=== PATIENT | female | born 1995 | race Caucasian/White ===

== ENCOUNTER 2022-05-06 09:08 | Inpatient (IN) | payer OTHER ==
[~2022-05-06] VITALS: Ht 165.1 cm; Wt 65.3 kg
[2022-05-06 09:15] VITALS: BP 140/111
--- NOTE | 2022-05-06 09:18 | NUR ---
AMBULATED TO BED 11
[2022-05-06] MEDS ORDERED: KETOROLAC 30 MG/ML VIAL IVP ONE (09:30)
[2022-05-06] MEDS ORDERED: NACL 0.9% 1,000 ML IV ONE ×2 (09:30→10:35)
[2022-05-06] MEDS ORDERED: LABETALOL 100 MG/20 ML VIAL IVP ONE (09:30)
[2022-05-06] MEDS ORDERED: LABETALOL 20 MG/4 ML VIAL IVP ONE (09:33)
--- NOTE | 2022-05-06 09:40 | NUR ---
PT C/O LEFT EAR PAIN WITH PURULENT DRAINAGE X1 MONTH. STACH ON MONITOR AND HYPERTENSIVE, IV INSERTED TO LEFT AC #20GUAGE . MEDICATED PER ORDER.
[2022-05-06 10:10] LABS: BASOPHILS # (AUTO) 0.1 K/uL (0.00-0.22); BASOPHILS % (AUTO) 1.1 % (0.0-2.0); EOSINOPHILS # (AUTO) 0.1 K/uL (0-0.4); EOSINOPHILS % (AUTO) 2.5 % (0.0-4.0); HEMATOCRIT 47.8 % (36-48); HEMOGLOBIN 16.6 g/dL (12.0-16.0); LYMPHOCYTES # (AUTO) 1.2 K/uL (2.5-16.5); LYMPHOCYTES % (AUTO) 21.6 % (20.5-51.1); MEAN CORPUSCULAR HEMOGLOBIN 35 pg (27-31); MEAN CORPUSCULAR HGB CONC 35 g/dL (33-37); MEAN CORPUSCULAR VOLUME 101.5 fL (80-94); MONOCYTES # (AUTO) 0.6 K/uL (0.8-1.0); MONOCYTES % (AUTO) 10.3 % (1.7-9.3); NEUTROPHILS # (AUTO) 3.7 K/uL (1.8-7.7); NEUTROPHILS % (AUTO) 64.5 % (42.2-75.2); PLATELET COUNT (AUTO) 153 K/uL (140-450); RED BLOOD CELL COUNT(AUTO) 4.71 MIL/uL (4.20-5.40); RED CELL DISTRIBUTION WIDTH 13.5 % (11.6-13.7); WHITE BLOOD COUNT (AUTO) 5.8 K/uL (4.8-10.8)
[2022-05-06 10:18] LABS: PROTHROMBIN TIME 10.7 secs (10.8-13.4)
[2022-05-06] MEDS ORDERED: AMPICILLIN/SULBACTAM 3 GM VIAL IM ONE (10:40)
[2022-05-06] MEDS ORDERED: VANCOMYCIN 1,000 MG in DEXTROSE 5% 250 ML IV ONE (10:40)
[2022-05-06 10:46] LABS: ALBUMIN 3.2 g/dL (3.4-5.0); CARBON DIOXIDE 26.2 mmol/L (21-32); CREATININE 0.6 mg/dL (0.6-1.3); POTASSIUM 3.2 mmol/L (3.5-5.1); TOTAL BILIRUBIN 1.3 mg/dL (0.0-1.0)
[2022-05-06] MEDS ORDERED: VANCOMYCIN 1,000 MG VIAL ONE (11:02)
[2022-05-06] MEDS ORDERED: POTASSIUM CHLORIDE 10 MEQ TABER PO ONE (11:30)
--- NOTE | 2022-05-06 12:00 | NUR ---
PT RESTING IN [facility] NO CHANGES NOTED SAFETY MAINTAINED
[2022-05-06] MEDS ORDERED: ACETAMINOPHEN 325 MG TAB PO PRN (13:15)
[2022-05-06] MEDS ORDERED: ONDANSETRON 4 MG/2 ML VIAL IVP PRN (13:15)
--- NOTE | 2022-05-06 15:00 | NUR ---
PT AMBULATES TO BATHROOM AND BACK TO [place], DENIES PAIN OR DISCOMFORT. PENDING ADMISSION ROOM. NAD. SAFETY MAINTAINED.
--- NOTE | 2022-05-06 17:57 | NUR ---
PT TX TO MED SURG IN STABLE CONDITION
--- NOTE | 2022-05-06 18:30 | NUR ---
admitted pt. from ED transported via gurney. A/O x4. not in any form of distress. assessment done and documented. plan of care discussed with the patient.
[2022-05-06] MEDS: OFLOXACIN 0.3% OT 5 ML SOL LEFT EAR SCH (18:51)
[2022-05-06] MEDS: AMPICILLIN/SULBACTAM 1.5 GM in NACL 0.9% 50 ML IV SCH ×2 (18:51→23:31)
--- NOTE | 2022-05-06 19:20 | NUR ---
RECEIVED REPORT FROM MORNING SHIFT NURSE. PATIENT IS AWAKE ALERT RESTING COMFORTABLY IN BED. NO DISTRESS ON ROOM AIR. IV ACCESS ON THE LAC 22 GAUGE INTACT AND PATENT. CALL LIGHT WITHIN REACH. NO COMPLAINTS OF PAIN AT THIS TIME. ALL SAFETY PRECAUTIONS ARE IN PLACE.
[2022-05-06] MEDS: HYDROcodone/APAP 5/325 MG 1 TAB TAB PO PRN (20:50)
--- NOTE | 2022-05-06 20:50 | NUR ---
PATIENT COMPLAINED OF MODERATE LEFT EAR PAIN , MEDICATED.
[2022-05-06] MEDS ORDERED: CLONIDINE HYDROCHLORIDE 0.1 MG TAB PO PRN (21:35)
[2022-05-06] MEDS ORDERED: VANCOMYCIN PER PHARMACY MC PRN (21:35)
--- NOTE | 2022-05-06 23:31 | NUR ---
UNASYN IVPB ADMINISTERED ORDERED.
[2022-05-07] VITALS: BP 123/85
[2022-05-07] MEDS ORDERED: VANCOMYCIN 1,000 MG VIAL ONE (01:42)
[2022-05-07] MEDS ORDERED: VANCOMYCIN 1GM/DEXT 5% PREMIX 200 ML IV SCH ×2 (02:15)
--- NOTE | 2022-05-07 02:20 | NUR ---
CHECK ON PATIENT, PT SLEEPING BREATHING NORMAL WITH SYMMETRICAL RISE AND FALL OF THE CHEST. CALL LIGHT WITHIN REACH.
[2022-05-07 04:55] LABS: EOSINOPHILS # (AUTO) 0.1 K/uL (0-0.4); EOSINOPHILS % (AUTO) 2.9 % (0.0-4.0); HEMATOCRIT 38.8 % (36-48); HEMOGLOBIN 13.4 g/dL (12.0-16.0); LYMPHOCYTES # (AUTO) 1.3 K/uL (2.5-16.5); LYMPHOCYTES % (AUTO) 32.4 % (20.5-51.1); MEAN CORPUSCULAR HEMOGLOBIN 36 pg (27-31); MEAN CORPUSCULAR HGB CONC 35 g/dL (33-37); MEAN CORPUSCULAR VOLUME 102.7 fL (80-94); MONOCYTES # (AUTO) 0.3 K/uL (0.8-1.0); MONOCYTES % (AUTO) 7.5 % (1.7-9.3); NEUTROPHILS # (AUTO) 2.3 K/uL (1.8-7.7); NEUTROPHILS % (AUTO) 56.2 % (42.2-75.2); PLATELET COUNT (AUTO) 119 K/uL (140-450); RED BLOOD CELL COUNT(AUTO) 3.78 MIL/uL (4.20-5.40); RED CELL DISTRIBUTION WIDTH 13.8 % (11.6-13.7); WHITE BLOOD COUNT (AUTO) 4.1 K/uL (4.8-10.8)
[2022-05-07 04:59] LABS: ANION GAP 11.1 (8-16); CARBON DIOXIDE 28.3 mmol/L (21-32); CREATININE 0.5 mg/dL (0.6-1.3); POTASSIUM 3.4 mmol/L (3.5-5.1)
[2022-05-07] MEDS: AMPICILLIN/SULBACTAM 1.5 GM in NACL 0.9% 50 ML IV SCH ×4 (05:29→23:56)
--- NOTE | 2022-05-07 07:30 | NUR ---
GAVE REPORT FO MORNING SHIFT NURSE OSWALD FOR CONTINUITY OF CARE.
[2022-05-07 08:00] VITALS: BP 133/95
--- NOTE | 2022-05-07 08:15 | NUR ---
RECEIVED T IN BED A/OX4 PT ENDORSES PAIN TO LEFT EAR ASSESSMENT COMPLETED PLAN OF CARE REVIEWED PT IN NO ACUTE DISTRESS AT THIS TIME CALL LIGHT IN REACH PT ADVISED TO USE CALL LIGHT FOR ASSISTANCE UNDERSTANDING VERBALIZED WILL CONTINUE TO MONITOR AND ASSESS
[2022-05-07] MEDS: levoFLOXacin 500 MG TAB PO SCH (09:08)
[2022-05-07] MEDS: LOSARTAN 50 MG TAB PO SCH (09:08)
[2022-05-07] MEDS: HYDROcodone/APAP 5/325 MG 1 TAB TAB PO PRN (09:08)
--- NOTE | 2022-05-07 09:10 | NUR ---
PT MEDICATED FOR PAIN ORDERED WITH NORCO WILL CONTINUE TO MONNITOR AND ASSESS
[2022-05-07] MEDS: VANCOMYCIN 750 MG in DEXTROSE 5% 250 ML IV SCH ×2 (10:51→18:14)
--- NOTE | 2022-05-07 12:24 | NUR ---
PATIENT HAS BEEN SCREENED AND CATEGORIZED LOW NUTRITION RISK. PATIENT WILL BE SEEN WITHIN 7 DAYS OF ADMISSION. 05/13/22 REFERRAL RECEIVED FOR UNINTENTIONAL WEIGHT LOSS AND DECREASED APPETITE, NOT APPLICABLE. PT REPORTED A GOOD APPETITE WITH GOOD PO INTAKE. PT WEIGHT WAS 176LBS A YEAR AGO D/T , BEFORE IT WAS ~107LBS PER PT. PT HAS BEEN GRADUALLY LOSING WEIGHT OVER A YEAR AFTER GIVING . PT CURRENT WEIGHT IS [address]
[2022-05-07 16:00] VITALS: BP 136/99
[2022-05-07] MEDS: OFLOXACIN 0.3% OT 5 ML SOL LEFT EAR SCH (17:13)
--- NOTE | 2022-05-07 19:10 | NUR ---
CARE ENDORSED TO EDWARDO CEE
--- NOTE | 2022-05-07 19:20 | NUR ---
RECEIVED PATIENT FROM MORNING SHIFT NURSE FOR CONTINUITY OF CARE. PATIENT IS RESTING COMFORTABLY IN SEMI FOWLERS POSITION IN NO ACUTE DISTRESS. BREATHING NORMAL UNLABORED. NO COMPLAINTS OF PAIN AT THIS TIME. CALL LIGHT WITHIN REACH. SAFETY MEASURES IN PLACE. NEEDS ATTENDED AND MET.
--- NOTE | 2022-05-07 23:56 | NUR ---
SCHEDULED UNASYN GIVEN ORDERED.
[2022-05-08] VITALS: BP 147/94
[2022-05-08] MEDS: HYDROcodone/APAP 5/325 MG 1 TAB TAB PO PRN (00:27)
[2022-05-08] MEDS: VANCOMYCIN 750 MG in DEXTROSE 5% 250 ML IV SCH ×2 (01:10→09:45)
--- NOTE | 2022-05-08 01:27 | NUR ---
CHECKED ON PATIENT, PT SLEEPING RESPIRATION EVEN UNLABORED. CALL LIGHT WITHIN REACH.
--- NOTE | 2022-05-08 02:00 | NUR ---
PATIENT IV LINE IS LEAKING. STARTED A NEW IV LINE ON LUBNA LEFT FOREARM WITH GOOD RETURN OF BLOOD. TOLERATED WELL.
[2022-05-08 05:28] LABS: ANION GAP 10.2 (8-16); BASOPHILS % (AUTO) 0.8 % (0.0-2.0); CARBON DIOXIDE 30.1 mmol/L (21-32); CREATININE 0.5 mg/dL (0.6-1.3); EOSINOPHILS # (AUTO) 0.1 K/uL (0-0.4); EOSINOPHILS % (AUTO) 2.5 % (0.0-4.0); HEMATOCRIT 41.8 % (36-48); HEMOGLOBIN 14.3 g/dL (12.0-16.0); LYMPHOCYTES # (AUTO) 1.2 K/uL (2.5-16.5); LYMPHOCYTES % (AUTO) 25.5 % (20.5-51.1); MEAN CORPUSCULAR HEMOGLOBIN 35 pg (27-31); MEAN CORPUSCULAR HGB CONC 34 g/dL (33-37); MEAN CORPUSCULAR VOLUME 102.7 fL (80-94); MONOCYTES # (AUTO) 0.4 K/uL (0.8-1.0); NEUTROPHILS % (AUTO) 63.2 % (42.2-75.2); PLATELET COUNT (AUTO) 135 K/uL (140-450); POTASSIUM 3.3 mmol/L (3.5-5.1); RED BLOOD CELL COUNT(AUTO) 4.07 MIL/uL (4.20-5.40); RED CELL DISTRIBUTION WIDTH 13.9 % (11.6-13.7); WHITE BLOOD COUNT (AUTO) 4.7 K/uL (4.8-10.8)
[2022-05-08] MEDS: AMPICILLIN/SULBACTAM 1.5 GM in NACL 0.9% 50 ML IV SCH ×2 (05:29→11:26)
[2022-05-08 05:49] LABS: ALBUMIN 2.4 g/dL (3.4-5.0); BILIRUBIN,DIRECT 0.4 mg/dL (0.0-0.3); TOTAL BILIRUBIN 0.9 mg/dL (0.0-1.0)
[2022-05-08 08:00] VITALS: BP 125/87
--- NOTE | 2022-05-08 08:00 | NUR ---
RECEIVED IN BED AWAKE ALERT ORIENTED X4 DENIES PAIN ASSESSMENT COMPLETED PLAN OF CARE REVIEWED BREATHING EVEN NON LABORED CALL LIGHT IN REACH NO ACUTE DISTRESS NOTED AT THIS TIME WILL CONTINUE TO MONITOR AND ASSESS
[2022-05-08] MEDS: LOSARTAN 50 MG TAB PO SCH (09:20)
[2022-05-08] MEDS: levoFLOXacin 500 MG TAB PO SCH (09:20)
[2022-05-08] MEDS ORDERED: POTASSIUM CHLORIDE 10 MEQ TABER PO SCH (10:51)
[2022-05-08 12:41] VITALS: BP 125/87
[2022-05-08] MEDS ORDERED: OFLO5SOL27 LEFT EAR (13:02)
[2022-05-08] MEDS ORDERED: LOSA50TA1 PO (13:02)
[2022-05-08] MEDS ORDERED: AMOX1TAB8 PO (13:02)
[2022-05-08] MEDS ORDERED: LEVO-481 PO (13:02)
--- NOTE | 2022-05-08 13:45 | NUR ---
PT DISCHARGED ORDERED DISCHARGE INSTRUCTIONS REVIEWED AND PT VERBALIZED UNDERSTANDING AND SIGNED PT AWARE TO [employer] [facility] AT PREFERRED PHARM[facility] AND MADE AWARE TO KEEP ALL [id number] APPOINTMENTS AND TO SEE [facility] STEVEN PT ASSISTED TO PRIVATE CAR AND LEFT NO DISTRESS NOTED
--- NOTE | 2022-05-09 15:31 | NUR ---
CALLED PATIENTS PCP OFFICE [phone] TO SCHEDULE F/UP APPT. SPOKE WITH TARYN AT DR OFFICE WHO REPORTS APPT REQUEST WILL BE FORWARDED TO ENDOCRINOLOGY SPECIALIST. ENDOCRINOLOGY SPECIALIST TO REACH OUT TO PATIENT TO SCHEDULE F/UP APPT. OUTREACHED TO PATIENT TO NOTIFY HER THAT ENDOCRINOLOGY SPECIALIST WILL BE IN CONTACT TO SCHEDULE F/UP APPT. PATIENT REPORTS SHE HAS APPT SET FOR 05/11 AT 2:00PM THAT WAS SCHEDULED WEEKS OUT.
== END 2022-05-08 13:35 | disposition home or self-care (01) | DRG 720 ==
LOC: MED 09:08 → MTU 13:17
PROVIDERS: ADMIT Internal Medicine; ATTEND Internal Medicine
DX: A41.9 Sepsis, unspecified organism (principal); K76.0 Fatty (change of) liver, not elsewhere classified; H70.92 Unspecified mastoiditis, left ear; R65.20 Severe sepsis without septic shock; Z20.822 Contact with and (suspected) exposure to COVID-19; G35 Multiple sclerosis; I10 Essential (primary) hypertension; H66.92 Otitis media, unspecified, left ear; H60.92 Unspecified otitis externa, left ear; R74.01 Elevation of levels of liver transaminase levels
CPT/HCPCS: 36415; 70481; 76705; 80048; 80053; 80076; 80202; 83605; 85025; 85610; 85730; 87040; 87081; 96361; 96365; 96372; 96375; 99291; J0295; J1885; J3370; J3490; J7030; J7060; Q0092; Q9967